=== PATIENT | male | born 2000 | race African-American/Black ===

== ENCOUNTER 2021-02-27 14:19 | Emergency (ER) | payer OTHER ==
[~2021-02-27] VITALS: Ht 177.8 cm; Wt 65.0 kg
[2021-02-27 14:21] VITALS: BP 122/52
--- NOTE | 2021-02-27 14:29 | ED Upper Extremity ---
General Chief Complaint: Skin/Wound Problems Stated Complaint: RT FINGER SWELLING Source: patient History of Present Illness Date Seen by Provider: Feb 27, 2021 Time Seen by Provider: 14:24 Initial Comments 21 yo male presenting with complaint of pain and swelling to right ring finger x 2 days. No trauma or injury. He does tear his fingernails. He denies biting his nails. He has not had something like this before. He has slight redness and pain to the tip of his finger. He has had no drainage from around fingernail. No fever, chills, redness streaking up finger. Severity: moderate Pain/Injury Location: right 4th finger Method of Injury: unknown Modifying Factors: Improves With Cold Therapy Allergies and Home Medications Allergies Coded Allergies: No Known Drug Allergies (Unverified , 02/27/21) Home Medications Ibuprofen 800 Mg Tablet, 800 MG PO Q8H PRN for PAIN Prescribed by: RAMON DAWSON on 02/27/21 1453 Sulfamethoxazole/Trimethoprim 1 Each Tablet, 1 EACH PO BID Prescribed by: RAMON DAWSON on 02/27/21 1453 Patient Home Medication List Home Medication List Reviewed: Yes Review of Systems Constitutional: No chills, No fever EENTM: no symptoms reported Respiratory: no symptoms reported Cardiovascular: no symptoms reported Gastrointestinal: no symptoms reported Genitourinary: no symptoms reported Musculoskeletal: see HPI Skin: see HPI Psychiatric/Neurological: Denies Numbness, Denies Paresthesia Past [id number] Hx Past Medical History Surgeries: No Respiratory: No Cardiac: No Physical Exam Vital Signs Vital Signs - First Documented 02/27/21 14:21 Temp 36.6 Pulse 63 Resp 16 B/P (MAP) 122/52 (75) Pulse Ox 100 O2 Delivery Room Air Capillary Refill : Height, Weight, BMI Height: '" Weight: lbs. oz. kg; BMI Method: General Appearance: WD/WN, no apparent distress Cardiovascular: normal peripheral pulses Hand: Right, infection (redness, swelling and pain to right ring fingertip and around nail. No pointing area located for definite abscess formation), soft tissue tenderness, swelling Neurologic/Psychiatric: psychic reader II-XII nml as tested, no motor/sensory deficits, alert, oriented x 3 Skin: warm/dry Progress/Results/Core Measures Results/Orders Vital Signs/I&O 02/27/21 14:21 Temp 36.6 Pulse 63 Resp 16 B/P (MAP) 122/52 (75) Pulse Ox 100 O2 Delivery Room Air Progress Progress Note : Progress Note Discussed with patient option of I&D and antibiotics versus antibiotics and heat. Patient preferred to just relax and heat first. Since it has been 2 days and there is no definite area of pointing for abscess formation it is unclear if there would be any purulent drainage with I&D yet. Advised to return or check with clinic if worsening and not improving with antibiotics Departure Impression Primary Impression: Paronychia of right ring finger Disposition: HOME, SELF-CARE Condition: Stable Departure-Patient Inst. Decision time for Depature: 14:48 Referrals: NO,LOCAL PHYSICIAN (PCP) Primary Care Physician [facility] [place] Patient Instructions: Paronychia ED, Using Heat for Pain Add. Discharge Instructions: Take the antibiotic to treat for infection in fingertip around the nail. Use heat 10-15 minutes every few hours as needed for pain and to help the area come to a head and drain If continued problems you could return or be seen in clinic. Call [phone] to reach the [facility] clinic to set up an appointment and establish care for follow up. All discharge instructions reviewed with patient and/or family. Voiced understanding. Scripts Sulfamethoxazole/Trimethoprim (Bactrim Ds Tablet) 1 Each Tablet 1 EACH PO BID for 10 Days, #20 TAB 0 Refills Prov: RAMON DAWSON MD 02/27/21 Ibuprofen (Ibuprofen) 800 Mg Tablet 800 MG PO Q8H PRN for PAIN for 10 Days, #30 TAB 0 Refills Prov: RAMON DAWSON MD 02/27/21 RAMON DAWSON MD Feb 27, 2021 14:29
[2021-02-27] MEDS ORDERED: SULF1TAB38 PO (14:53)
[2021-02-27] MEDS ORDERED: IBUP-1780 PO (14:53)
== END 2021-02-27 14:55 | disposition home or self-care (01) ==
LOC: ER FS 14:21
DX: L03.011 Cellulitis of right finger (principal)
CPT/HCPCS: 99282

== ENCOUNTER 2021-05-12 19:34 | Emergency (ER) | payer OTHER ==
[~2021-05-12 19:34] MED LIST: IBUP-1780 PO; SULF1TAB38 PO
== END 2021-05-12 19:48 | disposition left against medical advice (07) ==
LOC: EDUNIT# 19:34 → ER FS 19:35
DX: J02.9 Acute pharyngitis, unspecified (principal)